=== PATIENT | female | born 1945 | race Caucasian/White ===

== ENCOUNTER → 2019-09-25 | Outpatient (CLI) | payer OTHER, BC ==
[~2019-09-25] MED LIST: AMARYL2 M1 PO; ASPIR 8181 M1 PO; BYETTA PEN 11 PENIN1 SUBQ; BYSTOLIC 5 MG5 M1 PO; CYCLOBENZAPRINE5 MG PO; DOXYCYCLINE 10100 MG PO; FLONASE 0.05%50 MCG NASAL; HYDROCODONE-AP1 EAC6 PO; LEVOTHYROXIN0.075 MG PO; LOSARTAN-HCTZ1 EACH PO; METFORMIN HCL500 MG PO; MOBIC15 MG PO; NEURONTIN 300300 M1 PO; OXYCODON-ACETA1 EAC1 PO; SENOKOT-S1 TA1 PO; TELMISARTAN-HC1 EAC2 PO; VENTOLIN HFA 1818 GM INH; VOLTAREN GEL 1100 G2 TOP; VYTORIN 10-801 EACH PO; ZANTAC 150MG T150 MG PO
== END ==
LOC: NUC 07:38
PROVIDERS: ATTEND Specialist
DX: R11.2 Nausea with vomiting, unspecified (principal)